=== PATIENT | female | born 2000 | race Two or more races ===

== ENCOUNTER 2022-12-27 17:11 | Emergency (ER) | payer OTHER ==
[~2022-12-27] VITALS: Ht 157.5 cm; Wt 74.8 kg
[2022-12-27] MEDS ORDERED: PRENA1 TRUE CO1 EACH PO (17:55)
== END 2022-12-27 23:36 | disposition home or self-care (01) ==
LOC: ER 17:11
PROVIDERS: Nurse Practitioner Family
DX: R53.81 Other malaise (principal); L50.6 Contact urticaria; J06.9 Acute upper respiratory infection, unspecified; Z3A.27 27 weeks gestation of pregnancy; Z20.822 Contact with and (suspected) exposure to COVID-19
CPT/HCPCS: 36415; 96372; 99282; J1200